=== PATIENT | female | born 1955 | race Caucasian/White ===

== ENCOUNTER → 2018-04-17 | Outpatient (CLI) | payer OTHER | LOC: FIMAGING 09:41 | PROVIDERS: ATTEND Internal Medicine | DX: N83.202 Unspecified ovarian cyst, left side (principal); R93.5 Abnormal findings on diagnostic imaging of other abdominal regions, including retroperitoneum ==

== ENCOUNTER → 2018-04-24 | Outpatient (CLI) | payer OTHER ==
[~2018-04-24] MED LIST: IOPAMIDOL (ISOVUE-300) 100 ML BTL ONE
== END ==
LOC: FIMAGING 13:56
PROVIDERS: ATTEND Internal Medicine
DX: N83.292 Other ovarian cyst, left side (principal); K59.00 Constipation, unspecified
CPT/HCPCS: 74177; Q9967

== ENCOUNTER 2018-05-15 20:35 | Emergency (ER) | payer OTHER ==
--- NOTE | 2018-05-15 22:59 | EDPHY ---
General - History Smoking Status: Never smoked Time Seen by Provider: 05/15/18 21:25 Narrative: CLINICAL IMPRESSION: LLQ pelvic pain, flank pain ASSESSMENT/PLAN: 63 yo female presents to the ER with 24 hours of left lower pelvic pressure radiating to left flank. No associated N/V/D, fever/chills, anorexia, constipation, bloody stools, or UTI symptoms. She had a renal/pelvic US and CT with contrast in late March for evaluation of left ovarian cyst. She was found to have a 2.8x2.6x1.7 cm simple left ovarian cyst with no other abnormal mass detected on CT. Tylenol alleviates pain. She reports seeing some blood in her urine 4 days ago but urine today is without hematuria, pyuria, bacteriuria. Abdominal xrays show no e/o significant stool burden, SBO, free air. Abdomen is soft and without focal peritoneal findings on exam. Patient agrees to repeat pelvic US which was ordered and is pending at time of sign out. Ibuprofen helped with pain. She has an appointment tomorrow with her PCP, Dr. Durand and I recommend she keep this appointment. Case signed out to Dr. Yanez at 2400 pending US results and reassessment. DIFFERENTIAL DX: Abdominal pain includes but not limited to urinary tract infection, pyelonephritis, infection, ectopic , salpingitis, TOA, ovarian torsion, ovarian cyst, endometriosis, uterine fibroids, acute appendicitis, acute diverticulitis, small-bowel obstruction, constipation ED PROCEDURES: See lab and/or imaging results below ED COURSE: Seen and assessed by myself. Vital signs stable. No reported fever, chills, nausea, vomiting, diarrhea, bloody stools, anorexia. Abdomen soft without focal peritoneal findings. Recent CT and ultrasound. Will start with urine studies given reports of blood in her urine Urine shows no evidence of hematuria, bacteriuria or pyuria. I reviewed patient 's pelvic and renal ultrasound from April 17 which was read as a 2.8 x 2.6 x 1.7 left ovarian cyst was well as a unspecified pelvic calcification measuring 9 mm. Follow-up CT on April 24 showed a simple left ovarian cyst with moderate constipation but no other intra-abdominal mass, appendicitis or other abnormality. 10:30 p.m.: Urine studies present viewed with the patient. CT and ultrasound results discussed. Abdomen remains without focal peritoneal findings. Will plan to x-ray abdomen to assess for stool burden and I did discuss repeat pelvic ultrasound. Patient prefers to start with x-ray. 11:50 p.m. x-rays reviewed by myself and with patient. No evidence of significant stool burden, colonic dilation, small-bowel obstruction, or free air. Patient would like to pursue repeat pelvic ultrasound at this point. Abdomen remains soft and nonfocal. She agreed to try ibuprofen for analgesics. Case will be signed out to Dr. Yanez at 2400 pending US results. CHIEF COMPLAINT: Left side abdominal and back pain HPI: 63-year-old otherwise healthy female presents to the emergency department with atraumatic left side, abdomen and flank pain for the last 24 hr. Patient reports 4 days ago she use the restroom and saw some blood in her urine. The following day she noted that her urine appeared dark. Yesterday she developed some discomfort along the left side of the abdomen and flank that resolved with Tylenol. She continued to notice some discomfort and a "pressure sensation" in the lower pelvis today. She made an appointment with her primary care doctor for tomorrow but wanted to come to the ED for further evaluation tonight. No associated fever, chills, nausea, vomiting, diarrhea, vaginal bleeding, bloody stools. Appetite has been normal. No history of kidney stones or chronic UTIs. She had pelvic and renal ultrasound in late March followed by CT scan with contrast to evaluate a left ovarian cyst. He reports no other gynecologic history. She is concerned as they are leaving the country in 10 days to visit their daughter in [place]. No history of bowel or bladder incontinence, saddle anesthesia, recent low back injury or HALI. PAST MEDICAL HISTORY: None reported See nurse/triage notes for additional history if applicable Pertinent Past Surgical History: None reported Family History: None reported Social History: Otherwise healthy, here with her REVIEW OF SYSTEMS: All other systems negative Constitutional: No fever, no chills, appetite change. Cardiovascular: No chest pain, no palpitations. Respiratory: No cough, no shortness of breath. Gastrointestinal: + left sided abdominal pain and pelvic pressure, no vomiting, diarrhea. Genitourinary: No hematuria, dysuria, flank pain, + pelvic pressure Musculoskeletal: left flank pain, joint swelling, joint pain, myalgias. Skin: No rashes, color change. Neurological: No headache, dizziness, weakness. PHYSICAL EXAM: General Appearance: Alert, oriented, appropriate, cooperative, NAD, well hydrated, non-toxic appearing, VSS, mildly hypertensive, declining analgesics Respiratory: There are no retractions, lungs are clear to auscultation. Cardiac: Regular rate and rhythm, no murmurs or gallops. Gastrointestinal: Abdomen is soft, generally uncomfortable to palpation along the lower abdomen with hyperactive bowel sounds, no masses/hernia, no rigidity, guarding or focal peritoneal findings. No reproducible flank pain or low back pain. Neurological: [ Alert and oriented x 3, CN 2-12 grossly intact Skin: Warm, dry, no rashes, no nodules on palpation. Musculoskeletal: Extremities are symmetrical, full range of motion, no tenderness, deformity, swelling, or erythema. MEDICAL DECISION MAKING: Patient was seen independently. Secondary supervising physician at time of evaluation was Dr. Pollo Ross. Diagnosis: LLQ pelvic pain . New, requires workup Summary: See Assessment and Plan for summary of ED visit Clinical lab tests: ordered / reviewed. Independent visualization of images, tracing, or specimens: Yes. Decision to obtain medical records or history from someone other than the patient: No Review / Summarize previous medical records: Reviewed recent imaging results Discussed patient with another provider: Dr. Yanez Patient Progress: Stable at time of sign-out. (Catrachito Trinh) - Diagnostics Imaging Results: Pelvic ultrasound shows a left ovarian cyst concerned corresponding low density structure in the left ovary adnexa on recent CT. Study interpreted by Dr. Devine , direct Radiology. (Aleksey Yanez) - Objective Vital Signs: Initial Vital Signs Temperature (C) 36.6 C 05/15/18 20:38 Heart Rate 71 05/15/18 20:38 Respiratory Rate 18 05/15/18 20:38 Blood Pressure 141/50 H 05/15/18 20:38 O2 Sat (%) 96 05/15/18 20:38 O2 Delivery Mode Room Air Allergies/Adverse Reactions: No Known Allergies Allergy (Verified 05/15/18 20:38) Home Medications: Medication Instructions Recorded Miscellaneous Medical Supply [NO 1 ea MISC AD 04/27/11 HOME MEDS] Medications Given: Discontinued Medications Ibuprofen (Motrin) 600 mg PO EDNOW ONE Stop: 05/15/18 23:23 Last Admin: 05/15/18 23:36 Dose: 600 mg ED Course Discussion: 0005 care assumed from ISAEL Trinh pending pelvic ultrasound results. Pelvic ultrasound noted. Patient has a persistent left ovarian cyst which is unchanged in size. No other findings. Plan will be to discharge the patient follow up with primary care physician as scheduled. (Aleksey Yanez) Departure - Departure Disposition: Home, Routine, Self-Care Clinical Impression: Pelvic pain in female, Ovarian cyst, left Condition: Good Instructions: Pelvic Pain in Women (ED) Additional Instructions: DISCHARGE INSTRUCTIONS FROM YOUR DOCTOR Thank you for visiting our emergency department today. You were treated by a physician educational assistant teacher today and your case was reviewed with our ED Attending physician. Please keep in mind that discharge from the emergency department does not mean that there is nothing wrong - it simply means that we have not identified an emergency condition that requires further evaluation or treatment in the hospital. You should always plan to follow up with primary care for re- evaluation of your condition in the next 2-3 days. If you have been referred to a specialist, please call as soon as possible (today or tomorrow) to schedule your follow up appointment at the appropriate time. DIAGNOSTIC WORKUP IN THE EMERGENCY DEPARTMENT TONIGHT INCLUDED URINE STUDIES, ABDOMINAL X-RAY, AND PELVIC ULTRASOUND. YOU HAVE NO SIGN OF BLOOD IN YOUR URINE NOR DO HAVE SIGNS OF URINARY TRACT INFECTION. ABDOMINAL X-RAYS SHOW NO SIGNIFICANT STOOL BURDEN, EVIDENCE OF SMALL-BOWEL OBSTRUCTION OR FREE AIR IN THE ABDOMEN. RESULTS OF PELVIC ULTRASOUND WERE PROVIDED TO YOU BY DR. YANEZ. WE RECOMMEND YOU KEEP YOUR APPOINTMENT WITH YOUR PRIMARY CARE DOCTOR TOMORROW. PLEASE USE TYLENOL OR IBUPROFEN IF NEEDED FOR PAIN. RETURN TO THE ER SOONER FOR WORSENING OR SEVERE PAIN OR IF YOU DEVELOP FEVER/CHILLS, VOMITING, DIARRHEA , BLOODY STOOLS, URINARY RETENTION, NUMBNESS TO GROIN, BOWEL/BLADDER INCONTINENCE, OR ANY OTHER CONCERNS. People present with illnesses and injuries in different ways, and it is always possible that we have missed something. You may always return for re-evaluation if symptoms worsen or if they are not improving or if you develop new/different symptoms. Again, thank you for choosing our emergency department. We hope that you feel better. Referrals: Rachel Durand MD [Primary Care Provider] - 1 day without fail
[2018-05-15 23:16] VITALS: BP 115/62
[2018-05-15] MEDS ORDERED: IBUPROFEN 600 MG TAB PO ONE (23:22)
== END 2018-05-16 01:29 | disposition home or self-care (01) ==
DX: R10.2 Pelvic and perineal pain (principal); N83.202 Unspecified ovarian cyst, left side